=== PATIENT | female | born 1985 | race Caucasian/White ===

== ENCOUNTER 2016-10-09 15:44 | Emergency (ER) | payer MEDICAID ==
[~2016-10-09] VITALS: Ht 162.6 cm; Wt 104.3 kg
[~2016-10-09 15:44] MED LIST: HYDROCODON-ACE1 EAC4 PO; MOTRIN800 MG PO
[2016-10-09] MEDS ORDERED: TYLENOL325 MG PO (16:28)
[2016-10-09] MEDS ORDERED: EAR DROPS15 ML TOP (16:28)
== END 2016-10-09 16:25 | disposition short-term general hospital (02) ==
LOC: ER 15:44
DX: H66.91 Otitis media, unspecified, right ear (principal)